=== PATIENT | male | born 1990 | race Caucasian/White ===

== ENCOUNTER 2021-01-10 12:00 | Observation (INO) | payer BC ==
[~2021-01-10] VITALS: Ht 165.1 cm; Wt 68.7 kg
[~2021-01-10 12:00] MED LIST: AMOX500 PO; CLIN150 PO; IBUP600 PO; RXCLIN PO; RXOXYACE PO
[2021-01-10 12:35] LABS: BASOPHILS ABSOLUTE AUTO 0.05 K/mm3 (0.00-0.23); BASOPHILS PERCENT AUTO 1 % (0-2); EOSINOPHILS ABSOLUTE AUTO 0.08 K/mm3 (0.00-0.68); EOSINOPHILS PERCENT AUTO 1 % (0-6); Hematocrit 45.6 % (37.0-53.0); Hemoglobin 15.3 g/dL (13.5-17.5); IMMATURE GRAN ABSOLUTE AUTO 0.05 K/mm3 (0.00-0.10); IMMATURE GRAN PERCENT AUTO 1 % (0-1); LYMPHOCYTES ABSOLUTE AUTO 2.21 K/mm3 (0.84-5.20); LYMPHOCYTES PERCENT AUTO 37 % (21-46); MONOCYTES ABSOLUTE AUTO 0.17 K/mm3 (0.16-1.47); MONOCYTES PERCENT AUTO 3 % (4-13); Mean Corpuscular HGB Conc 33.6 g/dL (31.5-36.5); Mean Corpuscular Volume 87 fL (80-100); Mean Platelet Volume 9.6 fL (9.1-12.4); NEUTROPHILS ABSOLUTE AUTO 3.48 K/mm3 (1.96-9.15); NEUTROPHILS PERCENT AUTO 58 % (41-73); Platelet Count 282 K/mm3 (150-400); RDW Coefficient Variation 13.1 % (11.7-14.2); RDW Standard Deviation 41.1 fL (35.1-46.3); Red Blood Cell Count 5.27 M/mm3 (4.30-5.90); White Blood Cell Count 6.04 K/mm3 (4.00-11.30)
[2021-01-10 12:53] LABS: Alanine Aminotransfer (ALT/SGP 37 U/L (12-78); Albumin, Blood 3.5 g/dL (3.4-5.0); Albumin/Globulin Ratio 0.9 (0.8-1.8); Alk Phos 110 U/L (50-136); Anion Gap 10 mmol/L (6-16); Aspartate Aminotrans (AST/SGOT 40 U/L (12-37); Bilirubin, Total 0.6 mg/dL (0.1-1.0); Blood Urea Nitrogen 19 mg/dL (8-24); Bun/Creatinine Ratio 16.1 (12.0-20.0); CO2, Blood 22 mmol/L (21-32); Calcium, Blood 8.8 mg/dL (8.5-10.1); Chloride, Blood 103 mmol/L (98-108); Creatinine, Blood 1.18 mg/dL (0.60-1.20); Globulin, Blood 3.8 g/dL (2.2-4.0); Glomerular Filtration Rate >60 (60-); Glucose, Blood 293 mg/dL (70-99); Potassium, Blood 4.4 mmol/L (3.5-5.5); Sodium, Blood 135 mmol/L (136-145); Total Protein, Blood 7.3 g/dL (6.4-8.2)
[2021-01-10 13:10] LABS: Ethanol (Alcohol), Blood, Med <3 mg/dL
[2021-01-10 13:31] LABS: U Amphetamine Screen Not Detected; U Barbituate Screen Not Detected; U Benzodiazapine Screen Not Detected; U Buprenorphine Screen Not Detected; U Cannabinoids Screen Not Detected; U Cocaine Screen Not Detected; U Methadone Screen Not Detected; U Methamphetamine Screen Not Detected; U Opiates Screen Not Detected; U Oxycodone Screen Not Detected; U Phencyclidine Screen Not Detected; U Propoxyphene Screen Not Detected
[2021-01-10 16:21] LABS: Base Excess Venous -0.4 mmol/L; Bicarbonate Venous 23.3 mmol/L (24.0-30.0); PCO2 Venous 52.2 mmHg (38-42); PO2 Venous 85.4 mmHg (38-42); pH Blood Venous 7.31 (7.34-7.37)
[2021-01-10] MEDS ORDERED: NAPR220 PO (22:31)
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
[2021-01-11 13:15] LABS: U Amphetamine Screen Not Detected; U Barbituate Screen Not Detected; U Benzodiazapine Screen Not Detected; U Buprenorphine Screen Not Detected; U Cannabinoids Screen Not Detected; U Cocaine Screen Not Detected; U Methadone Screen Not Detected; U Methamphetamine Screen Not Detected; U Opiates Screen Not Detected; U Oxycodone Screen Not Detected; U Phencyclidine Screen Not Detected; U Propoxyphene Screen Not Detected
--- NOTE | 2021-01-11 18:26 | NUR ---
PT HAD STRESS TESTS TODAY. ALSO THE ECHO. STATES INTERESTED TO GO HOME. ADVISED NEEDS WAIT FOR DR TO READ RESULTS. IF CLEARED, THEN GOOD, BUT IF HAVE HEART ISSUES, NEEDS TO STAY AND GET FIXED. HE AGREED. ALTHOUGH RELUCTANTLY. S/O AND MOTHER IN ROOM. THEY AGREEE. PT ABOUT WALKING IN ROOM. PT STATES NO CHEST PAIN OR PRESSURE. BED IN LOW POSITION, CALL LITE IN REACH, CALLS APPROP
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
--- NOTE | 2021-01-12 10:23 | NUR ---
DR MYERS NOTIFIED THAT PT IS REFUSING ZIO MONITOR UPON DISCHARGE.
--- NOTE | 2021-01-12 11:11 | NUR ---
DISCHARGE INSTRUCTIONS REVIEWED WITH PT AND SPOUSE, IV DC'D INTACT. PT REPORTS HE HAS AN APPT THE THE ESTABLISHED WITH A PCP, NO NEW MEDICATIONS ORDERED, PT CONT TO TO REFUSE ZIO MONITOR. PT DC'D HOME WITH SPOUSE AT 1105.
--- NOTE | 2021-01-12 17:28 | NUR ---
RETURN TO WORK RX FOUND FOR PT. TOOK TO MAIN 3RD FLOOR [facility]. WILL MAKE AVAILABLE TO PT. CALLED HIM AND TOLD HIM IS AVAIL. HE TO COME CAR LUBRICATOR.
== END 2021-01-12 11:05 | disposition home or self-care (01) ==
LOC: ER 12:00 → MEDS 12:01
PROVIDERS: Emergency Medicine; Nurse Practitioner Acute Care; ADMIT Internal Medicine
DX: G92.8 Other toxic encephalopathy (principal); R79.89 Other specified abnormal findings of blood chemistry; R55 Syncope and collapse; J96.02 Acute respiratory failure with hypercapnia; F11.21 Opioid dependence, in remission; Z88.0 Allergy status to penicillin
CPT/HCPCS: 36415; 70450; 71045; 78452; 80053; 82550; 82803; 82947; 83036; 84484; 85025; 93005; 93010; 93017; 93306; 99285-25; A9500; G0480; J7030

== ENCOUNTER 2021-08-23 22:10 | Emergency (ER) | payer BC, OTHER ==
[~2021-08-23] VITALS: Ht 165.1 cm; Wt 86.2 kg
[~2021-08-23 22:10] MED LIST changes: +NAPR220 PO
== END 2021-08-24 00:02 | disposition home or self-care (01) ==
LOC: ER 22:10
DX: R51.9 Headache, unspecified (principal); J06.9 Acute upper respiratory infection, unspecified; F17.200 Nicotine dependence, unspecified, uncomplicated; Z88.0 Allergy status to penicillin
CPT/HCPCS: 96372; 99282-25; A9270; J1885